=== PATIENT | female | born 1995 | race Caucasian/White ===

== ENCOUNTER 2016-08-31 00:22 | Emergency (ER) | payer SELFPAY ==
--- NOTE | 2016-08-31 03:14 | ER Document Report ---
ED General - General Chief Complaint: Abdominal Pain Stated Complaint: ABDOMINAL PAIN Notes: Patient is a 20-year-old female with past history of recurrent abdominal pain with frequent visits to the emergency department for this complaint who presents today with an unspecified duration of intermittent diffuse abdominal pain. Patient is unable to explain how long this episode has been going on but notes that she has abdominal pain a daily basis and it is not different today. States that she is unsure if she is as her last period was July 21 and she does not typically have irregular menstrual periods. She denies any vaginal bleeding, discharge and at the time of my evaluation denies any abdominal pain. Does note that her pain is intermittent, cramping, diffuse in nature. Nothing improves or worsens the pain. States she was seen at [facility] several days ago for this complaint but did not have any improvement with NSAIDs but they recommended. Denies any prior history of abdominal surgeries. She is not have any vomiting although notes she's had some loose stools. TRAVEL OUTSIDE OF THE [place] IN LAST 30 DAYS: No COUNTRY TRAVELED TO/FROM: [place] - Related Data Allergies/Adverse Reactions: amoxicillin [Amoxicillin] Allergy (Intermediate, Verified 08/31/16 00:34) Hives amoxicillin trihydrate [From Augmentin] Allergy (Verified 08/31/16 00:34) ibuprofen [From Advil] Allergy (Verified 08/31/16 00:34) Hives Potassium Clavulanate * [From Augmentin] Allergy (Verified 08/31/16 00:34) Past Medical History - General Information source: Patient - Social History Smoking Status: Current Every Day Smoker Chew tobacco use (# tins/day): No Frequency of alcohol use: None Drug Abuse: None Lives with: Spouse/Significant other Family History: Reviewed & Not Pertinent Patient has suicidal ideation: No Patient has homicidal ideation: No Pulmonary Medical History: Reports: Hx Asthma Renal/ Medical History: Denies: Hx Peritoneal Dialysis - Immunizations Immunizations up to date: Yes Hx Diphtheria, Pertussis, Tetanus Vaccination: Yes Review of Systems - Review of Systems Notes: Constitutional: Negative for fever. HENT: Negative for sore throat. Eyes: Negative for visual changes. Cardiovascular: Negative for chest pain. Respiratory: Negative for shortness of breath. Gastrointestinal: Positive for abdominal pain, negative for vomiting or diarrhea. Genitourinary: Negative for dysuria. Musculoskeletal: Negative for back pain. Skin: Negative for rash. Neurological: Negative for headaches, weakness or numbness. 10 point ROS negative except as marked above and in HPI. Physical Exam - Vital signs Vitals: Temp Pulse Resp BP Pulse Ox 98.1 F 78 18 120/83 100 08/31/16 00:27 08/31/16 00:27 08/31/16 00:27 08/31/16 00:27 08/31/16 00:27 Interpretation: Normal Notes: PHYSICAL EXAMINATION: GENERAL: Well-appearing, well-nourished and in no acute distress. Playing with her cell phone HEAD: Atraumatic, normocephalic. EYES: Pupils equal round and reactive to light, extraocular movements intact, sclera anicteric, conjunctiva are normal. ENT: nares patent, oropharynx clear without exudates. Moist mucous membranes. NECK: Normal range of motion, supple without lymphadenopathy LUNGS: Breath sounds clear to auscultation bilaterally and equal. No wheezes rales or rhonchi. HEART: Regular rate and rhythm without murmurs ABDOMEN: Soft, nontender, normoactive bowel sounds. No guarding, no rebound. No masses appreciated. EXTREMITIES: Normal range of motion, no pitting or edema. No cyanosis. NEUROLOGICAL: No focal neurological deficits. Moves all extremities spontaneously and on command. PSYCH: Normal mood, normal affect. SKIN: Warm, Dry, normal turgor, no rashes or lesions noted. Course - Re-evaluation Re-evalutation: 08/31/16 03:10 Presentation of generalized, intermittent abdominal pain. Abdominal exam is benign without any focal tenderness. Vitals are normal at the time of arrival. Urinalysis is unremarkable without evidence of cystitis, . Patient is overall very well in appearance. Based on clinical history and examination I do not suspect an acute appendicitis, tubo-ovarian abscess, related pathology, pelvic inflammatory disease, mesenteric ischemia, or pyelonephritis. Patient admits that she is effectively here for a test as she had a friend who had a negative test at home but was found to have a positive test in clinic.At this time will discharge with return precautions and follow-up recommendations. Verbal discharge instructions given a the bedside and opportunity for questions given. Medication warnings reviewed. Patient is in agreement with this plan and has verbalized understanding of return precautions and the need for primary care follow-up in the next 24-72 hours. - Vital Signs Vital signs: Temp Pulse Resp BP Pulse Ox 98.1 F 78 18 120/83 100 08/31/16 00:30 08/31/16 00:30 08/31/16 00:30 08/31/16 00:30 08/31/16 00:30 Discharge - Discharge Clinical Impression: Generalized abdominal pain Condition: Good Disposition: HOME, SELF-CARE Additional Instructions: You have been seen in the Emergency Department (ED) for abdominal pain. Your evaluation did not identify a clear cause of your symptoms but was generally reassuring. You are not . Please follow up with your doctor as soon as possible regarding today's emergent visit and the symptoms that are bothering you. Return to the ED if your abdominal pain worsens or fails to improve, you develop bloody vomiting, bloody diarrhea, you are unable to tolerate fluids due to vomiting, fever greater than 101, or other symptoms that concern you.
[2016-08-31 03:44] LABS: APPEARANCE,URINE SLIGHTLY-CLOUDY; BILIRUBIN,URINE NEGATIVE (NEGATIVE); GLUCOSE, URINE NEGATIVE (NEGATIVE); KETONES,URINE NEGATIVE (NEGATIVE); LEUKOCYTE ESTERASE,URINE NEGATIVE (NEGATIVE); NITRITE,URINE NEGATIVE (NEGATIVE); PROTEIN,URINE NEGATIVE (NEGATIVE); URINE SPECIFIC GRAVITY 1.011; UROBILINOGEN,URINE NEGATIVE mg/dL (<2.0)
[2016-08-31 04:57] VITALS: BP 122/88
== END 2016-08-31 04:52 | disposition home or self-care (01) ==
LOC: ER 00:22
DX: R10.84 Generalized abdominal pain (principal); R19.4 Change in bowel habit; F17.200 Nicotine dependence, unspecified, uncomplicated; J45.909 Unspecified asthma, uncomplicated; Z88.0 Allergy status to penicillin; Z88.6 Allergy status to analgesic agent
CPT/HCPCS: 81001; 81025; 99284